=== PATIENT | male | born 1945 | race Caucasian/White ===

== ENCOUNTER 2017-03-28 11:43 | Emergency (ER) | payer MEDICARE, OTHER ==
[~2017-03-28] VITALS: Ht 172.7 cm; Wt 95.0 kg
[2017-03-28 11:43] VITALS: Ht 172.7 cm; Wt 95.0 kg
[2017-03-28] MEDS ORDERED: EPINEPHrine 0.1 MG/ML SYG ONE (11:59)
--- NOTE | 2017-03-28 14:01 | ERD ---
ER Documentation Chief Complaint Chief Complaint BIBA with Respiratory Arrest / Cardiac Arrest bagged at this time HPI Patient is a 72-year-old male who presents in full cardiac arrest. Please note the history and physical exam is limited as the patient is receiving CPR at this time. Paramedics attempted intubation in the field but were unsuccessful. He has had 6 minutes of CPR prior to arrival. Per the paramedics he was complaining of shortness of breath earlier today. He has a brother who is an route at this time. ROS All systems reviewed and are negative except as per history of present illness. Medications Home Meds Unable to Obtain Active Prescriptions or Reported Meds Allergies Allergies: Coded Allergies: Unknown: Unable to obtain (Unverified , 03/28/17) PMhx/Soc Medical and Surgical Hx: Unable to obtain FmHx Unable to obtain Physical Exam Vitals Vital Signs Date Time Temp Pulse Resp B/P Pulse Ox O2 Delivery O2 Flow Rate FiO2 03/28/17 11:43 0 Physical Exam Const: In full cardiac arrest Head: Atraumatic Eyes: Pupils fixed ENT: Normal External Ears, Nose and Mouth. Neck: Full range of motion..~ No meningismus. Resp: Bagged by respiratory therapy Cardio: Receiving CPR at this time Abd: Obese abdomen Skin: Pale skin Back: No midline or flank tenderness Ext: No cyanosis, or edema Neur: GCS 3, no movement or response Results 24 hrs Current Medications Medications (Trade) Dose Ordered Sig/Chari Route PRN Reason Start Time Stop Time Status Last Admin Dose Admin Epinephrine 1 mg STK-MED ONCE .ROUTE 03/28/17 11:59 03/28/17 12:00 DC Procedures/MDM EKG read by me: Rate/Rhythm: Wide-complex rhythm at a normal rate Intervals: Wide-complex QRS Impression: Wide-complex rhythm Endotracheal Intubation by me: Pre assessment performed. Pre-oxygenation performed with 100% oxygen RSI: Performed w/o complication or hypoxic events. Medications as ordered. Blade: MAC 4 Glidescope ET Tube: 7.5 cm Depth: 23 cm at the lip Intubation confirmed by colorimetric CO2, equal breath sounds, quiet over the stomach. Intraosseous Line Placement by me: Area prepped Anesthesia: None given as the patient is in full cardiac arrest Location: Anteromedial, Proximal Tibia (1-3 cm below Tibial tuberosity) Device: Blue IO needle Technique: EZ-IO Drill Results: Bone Marrow Aspirated, No extravasation Complications: No evidence of extravasation, compartment syndrome, growth plate damage, or fat embolism Defibrillation #1: Patient required defibrillation during the CODE BLUE Technique: Biphasic defibrillation at 200 J for ventricular fibrillation Defibrillation #2: Patient required defibrillation during the CODE BLUE Technique: Biphasic defibrillation at 200 J for ventricular fibrillation Defibrillation #3: Patient required defibrillation during the CODE BLUE Technique: Biphasic defibrillation at 200 J for ventricular fibrillation Defibrillation #4: Patient required defibrillation during the CODE BLUE Technique: Biphasic defibrillation at 200 J for ventricular fibrillation Defibrillation #5: Patient required defibrillation during the CODE BLUE Technique: Biphasic defibrillation at 200 J for ventricular fibrillation Limited transthoracic echo performed by me Indication: Cardiac arrest Pericardium: No effusion Cardiac: Cardiac standstill Image archived in the medical record. Patient is a 72-year-old male who presents to the ER in full cardiac arrest. The patient was intubated during CPR with a Glidescope. The patient received high quality CPR and multiple doses of ACLS medications. Please see the code sheet for full details. The patient was given multiple doses of epinephrine, 1 amp of bicarb, 1 amp of calcium chloride, and 300 mg of amiodarone. We coded the patient for more than 30 minutes in the emergency department and the patient never regained pulses. I brought the brother into the room during the cardiac arrest. At 1215 the patient was pronounced . He had no breath sounds, no lung sounds, pupils were fixed, negative corneal reflexes, no breathing spontaneously. Critical Care: Time: 35 minutes excluding all billable procedures. Treatments/Evaluations: Close monitoring and treatment of unstable vital signs, cardiorespiratory, and neurologic status, while maintaining tight balance of fluid, respiratory, and cardiac interventions. Departure Diagnosis: Primary Impression: Cardiac arrest Condition: Critical FUENTES ALFORD MD Mar 28, 2017 14:01
== END 2017-03-28 17:11 | disposition expired ==
LOC: E/R 11:43
DX: I46.9 Cardiac arrest, cause unspecified (principal)
CPT/HCPCS: 31500; 36680; 92950; 99291; J0171